=== PATIENT | male | born 1990 | race Caucasian/White ===

== ENCOUNTER → 2018-03-15 | Outpatient (CLI) | payer BC ==
--- NOTE | 2018-03-15 17:01 | CT ---
EXAMINATION TYPE: CT lumbar spine wo con DATE OF EXAM: 03/15/2018 COMPARISON: NONE HISTORY: Lumbago, arthrodesis status CT DLP: 452.7 mGycm CONTRAST: CT scan of the lumbar is performed , patient injected with mL of . TECHNIQUE: CT of the lumbar spine is performed on a spiral scan at 3 mm thick sections. Reconstructed images are performed in the coronal and sagittal planes. FINDINGS: Pedicle screws are present L4-L5 and S1. T12-L1: No focal disc herniation or significant disc bulge is evident. No spinal canal stenosis or neural foraminal stenosis is present. L1-L2: No focal disc herniation or significant disc bulge is evident. No spinal canal stenosis or n eural foraminal stenosis is present L2-L3: Broad-based disc bulge has mild anterior thecal sac compression. No AP spinal canal stenosis o r neural foraminal stenosis is evident. L3-L4: Broad-based disc bulge has moderate anterior thecal sac compression. Ligamentum flavum laxity is contributing to spinal canal stenosis through this level. L4-L5: Laminectomy has been performed. No spinal canal stenosis is evident. There is beam hardening a rtifact causing some limitation. Disc spacer is present. L5-S1: Pedicle screws are present. No spinal canal stenosis is present. Vertebral alignment appears normal. IMPRESSION: 1. Spinal canal stenosis L3-L4 secondary to moderate disc bulging and facet hypertrophy with ligament um flavum laxity. 2. Disc bulging L3-4 and to a lesser degree L2-3 with anterior thecal sac compression.
== END | disposition home or self-care (01) ==
LOC: RADCTMAIN 15:34
PROVIDERS: ATTEND Orthopaedic Surgery
DX: M48.061 Spinal stenosis, lumbar region without neurogenic claudication (principal); M51.26 Other intervertebral disc displacement, lumbar region; Z98.1 Arthrodesis status
CPT/HCPCS: 72131

== ENCOUNTER 2018-10-09 15:02 | Emergency (ER) | payer BC ==
[2018-10-09 16:26] VITALS: TEMP 98.5
[2018-10-09 19:10] VITALS: BP 129/96; PULSE 85; RESP 16
--- NOTE | 2018-10-09 19:28 | ED ---
Dizziness HPI - General Chief Complaint: Dizziness Stated Complaint: vertigo, elevated bp, tachycardia, sent by [facility] Source: patient Mode of arrival: ambulatory Limitations: no limitations - History of Present Illness Initial Comments: 28-year-old male past medical or diagnosed years ago with increasing for the past 2 months. Patient states he is currently managing his vertigo with his primary care provider as well as going through therapy. Patient denies any changes in his vertigo. He states that he looked at his apple watch earlier today and noticed an elevated heart rate reading and presented for evaluation at [facility]. Upon arrival patient states that he was "passing all the tests " however he states he had a positive orthostatic reading and was sent for further evaluation and EKG. Patient states he is not concerned with the dizziness and states he does not thinks it is associated with a heart rate. Patient states she hopes his apple watch is broken. Upon arrival patient heart rate mildly elevated however EKG obtained revealing ventricular rate of 71 bpm an advanced triage. Pt appears well patient denies chest pain, dyspnea, dyspnea on exertion, lower extremity edema, history of heart murmur, history of syncope, history of dizziness upon exertion. Patient states he experiences dizziness with quick movements of the head or driving at night. Patient denies any headache, nausea, vomiting, visual changes or diplopia. Upon arrival pt BP elevated, appearing well. Remainder VS within acceptable limits. - Related Data Home Medications Medication Instructions Recorded Confirmed Zolpidem [Ambien] 10 mg PO HS PRN 03/18/14 03/18/14 traMADol HCl [Ultram] 50 mg PO BID PRN 03/18/14 03/18/14 Previous Rx's Medication Instructions Recorded Hydrocodone/Acetaminophen [[place] 1 each PO Q6HR PRN #25 tab 03/18/14 5-325] Allergies Allergy/AdvReac Type Severity Reaction Status Date / Time No Known Allergies Allergy Verified 03/18/14 17:37 Review of Systems ROS Statement: Those systems with pertinent positive or pertinent negative responses have been documented in the HPI. ROS Other: All systems not noted in ROS Statement are negative. Past Medical History Additional Past Medical History / Comment(s): Sciatica, Bulging Discs-lumbar History of Any Multi-Drug Resistant Organisms: None Reported Past Surgical History: Back Surgery Past Psychological History: No Psychological Hx Reported Smoking Status: Former smoker Past Alcohol Use History: Occasional Past Drug Use History: None Reported General Exam - General Exam Comments Initial Comments: General: The patient is awake and alert, in no distress, and does not appear acutely ill. Eye: +3mm pupils are equal, round and reactive to light, extra-ocular movements are intact. No nystagmus. There is normal conjunctiva bilaterally. No signs of icterus. Ears, nose, mouth and throat: There are moist mucous membranes and no oral lesions. Neck: The neck is supple, there is no tenderness or JVD. Cardiovascular: There is a regular rate and rhythm. No murmur, rub or gallop is appreciated. Respiratory: Lungs are clear to auscultation, respirations are non-labored, breath sounds are equal. No wheezes, stridor, rales, or rhonchi. Gastrointestinal: Soft, non-distended, non-tender abdomen without masses or organomegaly noted. There is no rebound or guarding present. No CVA tenderness. Bowel sounds are unremarkable. Musculoskeletal: Normal ROM, no tenderness. Strength 5/5. Sensation intact. Radial pulses equal bilaterally 2+. Neurological: A&O x 3. CN II-XII intact, There are no obvious motor or sensory deficits. Coordination appears grossly intact. Speech is normal. Skin: Skin is warm and dry and no rashes or lesions are noted. No lower extremity edema.Negative Von bilaterally Psychiatric: Cooperative, appropriate mood & affect, normal judgment. Limitations: no limitations Course Vital Signs 10/09/18 10/09/18 16:23 19:09 Temperature 98.5 F Pulse Rate 97 85 Respiratory 18 16 Rate Blood Pressure 134/90 129/96 O2 Sat by Pulse 99 100 Oximetry EKG Findings - EKG Comments: EKG Findings:: Obtained at 1700. A 12-lead EKG was performed and shows the following: Rate is 71bpm, and rhythm is normal sinus. There are normal QRS complexes and normal R-wave progression. ST segments have no elevation or depression, and MA segments appear normal. Obtained at 1918. A 12-lead EKG was performed and shows the following: Rate is 71bpm, and rhythm is normal sinus. There are normal QRS complexes and normal R-wave progression. ST segments have no elevation or depression, and MA segments appear normal. Medical Decision Making - Medical Decision Making Patient presenting after being sent by [employer]. Multiple EKGs were obtained , both revealing heart rate of 71 bpm with no acute findings. Pt states he has no difference in his dizziness/nor increase, stating its identical to the vertigo he has been dealing with for two years. Pt denies chest pain, palpatations, dsypnea, dsypnea upon exertion or any concerning PMH/ROS. At thist time I feel pt is stable for discharge with primary care f/u in the next 1 -2 days for isolated elevated HR reading and elevated BP reading. Pt is agreeable with plan stating he is ready for discharge. Pt discharged after discussing the case at length with Dr. Kirkpatrick who agreed with impression and plan. Pt discharged appearing well. Disposition Clinical Impression: History of vertigo, Normal ECG, Elevated blood pressure reading Disposition: HOME SELF-CARE Condition: Good Instructions: Tachycardia (ED) Additional Instructions: Please follow-up with family doctor in the next 2 days. Please return to emergency room if the symptoms increase or worsen or for any other concerns, as discussed. Is patient prescribed a controlled substance at d/c from ED?: No Referrals: Benito Manley MD [Primary Care Provider] - 1-2 days Time of Disposition: 19:28
== END 2018-10-09 19:31 | disposition home or self-care (01) ==
LOC: EC 15:02
DX: R03.0 Elevated blood-pressure reading, without diagnosis of hypertension (principal); R42 Dizziness and giddiness; Z87.891 Personal history of nicotine dependence
CPT/HCPCS: 93005; 99284

== ENCOUNTER → 2018-10-22 | Outpatient (CLI) | payer BC ==
--- NOTE | 2018-10-22 11:06 | ECHOF ---
Referral Reason:R03.0 Elevated Blood Pressure, Z82.49 Family Hx Is MEASUREMENTS -------- HEIGHT: 175.3 cm WEIGHT: 74.8 kg BP: RVIDd: 2.7 cm (< 3.3) IVSd: 1.1 cm (0.6 - 1.1) LVIDd: 4.8 cm (3.9 - 5.3) LVPWd: 1.1 cm (0.6 - 1.1) IVSs: 1.4 cm LVIDs: 3.6 cm LVPWs: 1.3 cm LA Diam: 3.0 cm (2.7 - 3.8) Ao Diam: 3.5 cm (2.0 - 3.7) AV Cusp: 1.9 cm (1.5 - 2.6) LA Diam: 3.1 cm (2.7 - 3.8) MV EXCURSION: 21.562 mm (> 18.000) MV EF SLOPE: 86 mm/s (70 - 150) EPSS: 0.7 cm MV E Arturo: 0.53 m/s MV DecT: 279 ms MV A Arturo: 0.58 m/s MV E/A Ratio: 0.91 RAP: 5.00 mmHg RVSP: 12.17 mmHg FINDINGS -------- Sinus rhythm. This was a technically good study. LV size, wall thickness and systolic function are low normal. The left ventricular size is normal. Overall left ventricular systolic function is low-normal with, an EF between 50 - 55 %. The right ventricle is normal in size. The left atrial size is normal. The right atrial size is normal. The aortic valve is trileaflet, and appears structurally normal. No aortic stenosis or regurgitation. Mild mitral annular calcification present. Mild mitral regurgitation is present. Mild tricuspid regurgitation present. There is no evidence of pulmonary hypertension. The right v entricular systolic pressure, as measured by Doppler, is 12.17mmHg. There is no pulmonic regurgitation present. The aortic root size is normal. There is no pericardial effusion. CONCLUSIONS -------- 1. LV size, wall thickness and systolic function are normal, with an EF greater than 55%. 2. The left ventricular size is normal. 3. The right ventricle is normal in size. 4. The left atrial size is normal. 5. The right atrial size is normal. 6. The aortic valve is trileaflet, and appears structurally normal. No aortic stenosis or regurgitati on. 7. Mild mitral annular calcification present. 8. Mild mitral regurgitation is present. 9. Mild tricuspid regurgitation present. 10. There is no evidence of pulmonary hypertension. 11. The right ventricular systolic pressure, as measured by Doppler, is 12.17mmHg. 12. There is no pulmonic regurgitation present. 13. The aortic root size is normal. 14. There is no pericardial effusion. FINGER COBBLER: Stephanie Miguel RDCS
== END | disposition home or self-care (01) ==
LOC: RADECHMAIN 08:25
PROVIDERS: ATTEND Family Medicine
DX: I08.1 Rheumatic disorders of both mitral and tricuspid valves (principal); Z82.49 Family history of ischemic heart disease and other diseases of the circulatory system
CPT/HCPCS: 93306

== ENCOUNTER → 2018-11-04 | Outpatient (CLI) | payer BC ==
--- NOTE | 2018-11-04 22:26 | MR ---
EXAMINATION TYPE: MR brain and iac wo/w con DATE OF EXAM: 11/04/2018 COMPARISON: NONE HISTORY: Headaches, dizziness, disequilibrium, and confusion per patient in order. TECHNIQUE: Multiplanar, multisequence images of the brain and brainstem including internal auditory canals are a ll performed without and with IV contrast, utilizing 7.5 mL intravenous Gadavist . FINDINGS: Diffusion weighted images demonstrate no evidence of a recent infarct or other diffusion ab normality. There is no extra-axial fluid collection or significant white matter signal abnormality. The ventricular system and cisternal spaces are normal in size and appearance. The brain volume is age appropriate. Midline structures demonstrate normal morphology. The craniocervical junction appears within normal limits. Post contrast images demonstrate no abnormal enhancement. The dural venous sinuses appear pa tent. The visualized sinuses are clear and the globes are intact. No suspicious fluid signal is seen in mastoid air cells bilaterally. The vestibulocochlear complexes are symmetric and felt within normal limits. No suspicious enhancing cerebellopontine angle masses ar e identified bilaterally. IMPRESSION: No significant finding is seen to account for patient's symptoms.
== END | disposition home or self-care (01) ==
LOC: RADMRIMAIN 15:18
PROVIDERS: ATTEND Otolaryngology
DX: R42 Dizziness and giddiness (principal); H93.3X9 Disorders of unspecified acoustic nerve
CPT/HCPCS: 70553; A9585

== ENCOUNTER → 2018-11-07 | Outpatient (CLI) | payer BC | LOC: NEUROMAIN 12:46 | PROVIDERS: ATTEND Otolaryngology | DX: R42 Dizziness and giddiness (principal) | CPT/HCPCS: 92537; 92540 ==

== ENCOUNTER → 2019-04-23 | Outpatient (CLI) | payer BC ==
--- NOTE | 2019-04-23 13:44 | CT ---
EXAMINATION TYPE: CT lumbar spine wo con DATE OF EXAM: 04/23/2019 COMPARISON: 03/15/2018 HISTORY: low back pain CT DLP: 406.[address] of the lumbar spine was performed. Bone and soft tissue window settings are submitted as well as coronal and sagittal reconstructions. L1-L2: Normal disc space height. No disc herniation protrusion or central stenosis. No facet joint arthropathy. No evidence for foraminal encroachment. L2-L3: Mild degenerative disc space narrowing noted. A mild circumferential disc bulge greatest poste riorly. Effacement ventral thecal sac without lateral recess stenosis or central stenosis. Foramina a re patent bilaterally. L3-L4: Moderate degenerative disc space narrowing. Moderate circumferential disc bulge. There is deya re central stenosis. Hypertrophy ligamentum flavum and facet joint arthropathy noted. Bilateral left foraminal encroachment. L4-L5: Postsurgical changes of decompressive lumbar laminectomy with pedicular screws. Intervertebral body spacers are noted. There is a grade 1 retrolisthesis of L4 and L5 measuring 3 mm. No evidence f or recurrent or residual disease. Streak artifact does limit evaluation. L5-S1: Postsurgical changes of decompressive lumbar laminectomy with pedicular screws. Intervertebral body spacers are noted. Alignment is anatomic. No evidence for recurrent or residual disease. No paraspinal masses are identified. Lumbar segments are free if fracture. IMPRESSION: 1. Severe central stenosis at L3-4 unchanged from prior study. 2. Postoperative changes L4-5 and L5-S1 with stable alignment.
== END | disposition home or self-care (01) ==
LOC: RADCTMAIN 13:12 → MERGE 13:20
PROVIDERS: ATTEND Physical Medicine & Rehabilitation
DX: M48.061 Spinal stenosis, lumbar region without neurogenic claudication (principal); F17.210 Nicotine dependence, cigarettes, uncomplicated; Z98.1 Arthrodesis status
CPT/HCPCS: 72131

== ENCOUNTER → 2019-08-22 | Outpatient (CLI) | payer BC ==
--- NOTE | 2019-08-23 15:19 | XR ---
EXAMINATION TYPE: XR scoliosis survey DATE OF EXAM: 08/22/2019 COMPARISON: NONE HISTORY: Back pain, degenerative disc disease, prior lumbar surgery, M 47.817 TECHNIQUE/FINDINGS: Frontal and lateral views of the thoracolumbar spine were obtained There is a bibi y minimal, barely imperceptible levoscoliosis of the thoracolumbar spine in a long segment with Iraheta angle less than 5 degrees. Postsurgical changes seen of L4-S1 with transitional vertebrae at L5. Late ral image demonstrates mild degenerative disc disease of the lumbar spine with no vertebral body heig ht loss of the visualized thoracic or lumbar spine. IMPRESSION: Barely imperceptible long segment levoscoliosis of the thoracolumbar spine with Iraheta angl e less than 5 degrees.
== END | disposition home or self-care (01) ==
LOC: RADXRMAIN 16:01
PROVIDERS: ATTEND Physical Medicine & Rehabilitation
DX: M43.16 Spondylolisthesis, lumbar region (principal); M47.817 Spondylosis without myelopathy or radiculopathy, lumbosacral region; M96.1 Postlaminectomy syndrome, not elsewhere classified; F17.210 Nicotine dependence, cigarettes, uncomplicated; Z98.1 Arthrodesis status; Z98.890 Other specified postprocedural states
CPT/HCPCS: 72082

== ENCOUNTER 2020-11-20 23:33 | Emergency (ER) | payer BC ==
[2020-11-20 23:42] VITALS: BP 120/78; PULSE 102; RESP 18; TEMP 98.6
[2020-11-20] MEDS ORDERED: FAMOTIDINE 20 MG/2 ML VIAL IV STA (23:43)
[2020-11-20] MEDS ORDERED: diphenhydrAMINE 50 MG/ML 1 ML VIAL IVP STA (23:43)
[2020-11-20] MEDS ORDERED: SODIUM CHLORIDE 0.9% 500 ML 500 ML IV ONE (23:44)
[2020-11-20] MEDS ORDERED: methylPREDNISolone SOD SUCCI 125 MG/2 ML VIAL IV STA (23:44)
--- NOTE | 2020-11-20 23:58 | ED ---
Allergic Reaction HPI - General Chief complaint: Allergic Reaction Stated complaint: Allergic Reaction Time Seen by Provider: 11/20/20 23:43 Source: patient Mode of arrival: ambulatory Limitations: no limitations - History of Present Illness Initial Comments: 30yo male presenting for cc of possible allergic reaction to shell fish pt states that he was eating lobster and shortly after he felt fullness in neck, some dsypnea and warm face. pt stats his father has known shellfish allergy that developed 8 years ago. he was scared he was having an allergic reaction took 25mg of benadryl and had his bring him to the ER. carolaetn denies abdominal pain, vomiting, diarrhea, he denies current dsypnea, tongue or lip swelling. Denies additional complaints. Upon arrival patient appears well nontoxic in no acute distress. - Related Data Home Medications Medication Instructions Recorded Confirmed Zolpidem [Ambien] 10 mg PO HS PRN 03/18/14 03/18/14 traMADol HCl [Ultram] 50 mg PO BID PRN 03/18/14 03/18/14 Previous Rx's Medication Instructions Recorded Hydrocodone/Acetaminophen [[place] 1 each PO Q6HR PRN #25 tab 03/18/14 5-325] EPINEPHrine (Auto Inject) [Epipen] 0.3 mg IM ONCE PRN 2 Days #2 pen 11/21/20 predniSONE 50 mg PO DAILY 3 Days #3 tab 11/21/20 Allergies Allergy/AdvReac Type Severity Reaction Status Date / Time shellfish derived [Shellfish] Allergy Rash/Hives Verified 11/20/20 23:42 Review of Systems ROS Statement: Those systems with pertinent positive or pertinent negative responses have been documented in the HPI. ROS Other: All systems not noted in ROS Statement are negative. Past Medical History Additional Past Medical History / Comment(s): Sciatica, Bulging Discs-lumbar History of Any Multi-Drug Resistant Organisms: None Reported Past Surgical History: Back Surgery Past Psychological History: No Psychological Hx Reported Smoking Status: Current every day smoker Past Alcohol Use History: Occasional Past Drug Use History: None Reported General Exam - General Exam Comments Initial Comments: General: The patient is awake and alert, in no distress Eye: +3 mm pupils are equal, round and reactive to light, extra-ocular movements are intact. No nystagmus. There is normal conjunctiva bilaterally. No signs of icterus. Ears, nose, mouth and throat: There are moist mucous membranes and no oral lesions. No tongue no lip swelling. oropharynx unremarkable. Neck: The neck is supple, there is no tenderness or JVD. Cardiovascular: There is a regular rate and rhythm. No murmur, rub or gallop is appreciated. Respiratory: Lungs are clear to auscultation, respirations are non-labored, breath sounds are equal. No wheezes, stridor, rales, or rhonchi. Gastrointestinal: Soft, non-distended, non-tender abdomen without masses or organomegaly noted. There is no rebound or guarding present. Musculoskeletal: Normal ROM, no tenderness. Strength 5/5. Sensation intact. Radial pulses equal bilaterally 2+. Neurological: A&O x 3. CN II-XII intact grossly, There are no obvious motor or sensory deficits. Coordination appears grossly intact. Speech is normal. Skin: Skin is warm and dry. Erythema of neck/ears/face. no vesicular lesions. Psychiatric: Cooperative, appropriate mood & affect, normal judgment. Limitations: no limitations Course Vital Signs 11/20/20 23:40 Temperature 98.6 F Pulse Rate 102 H Respiratory 18 Rate Blood Pressure 120/78 O2 Sat by Pulse 99 Oximetry Medical Decision Making - Medical Decision Making 30yo male presenting for food ALLERGY. no dyspnea, wheezing, abdominal pain, no hypotension, mild tachycardia. no distress. no oral involvement. pt has significant improvement/resolution of symptoms after IV medications. Pt discharged on prednisone after being educated on appropriate EpiPen use and importance of outpatient follow-up and return parameters. Patient was told to avoid any shellfish. Disposition Clinical Impression: Food allergy Disposition: HOME SELF-CARE Condition: Good Instructions (If sedation given, give patient instructions): Anaphylaxis (ED) Additional Instructions: Please use medication as discussed. Please follow-up with family doctor in the next 2 days, recommend outpatient quilter fixer follow-up. Please return to emergency room if the symptoms increase or worsen or for any other concerns. Prescriptions: EPINEPHrine (Auto Inject) [Epipen] 0.3 mg IM ONCE PRN 2 Days #2 pen PRN Reason: Anaphylaxis predniSONE 50 mg PO DAILY 3 Days #3 tab Is patient prescribed a controlled substance at d/c from ED?: No Referrals: Benito Manley MD [Primary Care Provider] - 1-2 days Patience Rothman MD [STAFF PHYSICIAN] - 1-2 days Time of Disposition: 00:37
== END 2020-11-21 00:56 | disposition home or self-care (01) ==
LOC: EC 23:33
DX: T78.1XXA Other adverse food reactions, not elsewhere classified, initial encounter (principal); R06.00 Dyspnea, unspecified; R00.0 Tachycardia, unspecified; F17.200 Nicotine dependence, unspecified, uncomplicated; Z91.013 Allergy to seafood
CPT/HCPCS: 99284; 96374; 96375 ×2; J1200; J2930

== ENCOUNTER → 2022-01-31 | Outpatient (CLI) | payer BC ==
--- NOTE | 2022-01-31 22:16 | US ---
EXAMINATION TYPE: US scrotum with doppler. Grayscale and color Doppler Duplex imaging performed of kellen allen scrotum. 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 EXAM MEASUREMENTS: TESTICLES: Right Testicle: 4.5 x 2.4 x 4.5 cm Left Testicle: 4.6 x 2.0 x 3.4 cm EPIDIDYMIS HEAD: Right Epididymis: 1.3 x .5 cm Left Epididymis: .7 x .5 cm Doppler performed to assess for testicular vascularity; good bilateral color flow and waveforms are s een. Presence of hydroceles: None Presence of varicoceles: None Satisfactory blood flow to both testicles. Comparison views are unremarkable. IMPRESSION: Unremarkable study.
== END | disposition home or self-care (01) ==
LOC: RADUSWWP 13:04
PROVIDERS: ATTEND Obstetrics & Gynecology Reproductive Endocrinology
DX: Z31.41 Encounter for fertility testing (principal)
CPT/HCPCS: 76870; 93975